=== PATIENT | male | born 1985 | race African-American/Black ===

== ENCOUNTER 2017-05-07 14:50 | Emergency (ER) | payer OTHER ==
[~2017-05-07] VITALS: Ht 172.7 cm; Wt 90.3 kg
[~2017-05-07 14:50] MED LIST: HYDROCODONE/ACE1 TA1 PO
[2017-05-07 14:54] VITALS: BP 132/76
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
[2017-05-07] MEDS ORDERED: CYCLOBENZAPRINE10 M1 PO (16:10)
[2017-05-07] MEDS ORDERED: IBUPROFEN800 M1 PO (16:10)
== END 2017-05-07 16:26 ==
LOC: ERH 14:50
DX: S16.1XXA Strain of muscle, fascia and tendon at neck level, initial encounter (principal); V89.2XXA Person injured in unspecified motor-vehicle accident, traffic, initial encounter; Y92.9 Unspecified place or not applicable
CPT/HCPCS: 72050